=== PATIENT | male | born 1970 | race Caucasian/White ===

== ENCOUNTER 2017-07-20 20:36 | Inpatient (IN) | payer OTHER ==
[~2017-07-20] VITALS: Ht 167.6 cm; Wt 109.8 kg
[2017-07-20] MEDS ORDERED: MORPHINE SULFATE 4 MG/ML CPJ (NOT FOR IM USE) IV STA (20:45)
[2017-07-20] MEDS ORDERED: SODIUM CHLORIDE 0.9% 1,000 ML IV ONE (20:45)
[2017-07-20] MEDS ORDERED: FAMOTIDINE 20MG/2ML VIAL IV ONE (20:45)
[2017-07-20] MEDS ORDERED: ONDANSETRON HCL 4MG/2ML INJ IV STA (20:45)
[2017-07-20 21:50] LABS: BASOPHILS % 0.4 % (0.0-2.0); EOSINOPHILS % 0.6 % (0.0-5.0); HEMOGLOBIN. 14.9 g/dL (14.0-18.0); MEAN CORPUSCULAR HEMOGLOBIN 29.2 pg (28.0-32.0); MEAN CORPUSCULAR VOLUME 84.2 fL (80.0-94.0); MEAN PLATELET VOLUME 8.8 fl (7.4-10.4); MONOCYTES % 9.1 % (2.0-8.0); NEUTROPHILS % 75.9 % (40.0-76.0); PLATELET 272 x1000/uL (130-400); RED CELL DISTRIBUTION WIDTH 14.4 % (11.6-14.6)
[2017-07-20 21:54] LABS: INR 1.1
[2017-07-20 21:58] LABS: CHLORIDE 102 mEq/L (98-107)
[2017-07-20 22:02] LABS: ETHANOL BLOOD < 10 mg/dL
[2017-07-21 01:19] VITALS: BP 143/92
[2017-07-21] MEDS ORDERED: SERT50TA12 PO (03:33)
[2017-07-21] MEDS ORDERED: SUCR1TAB30 PO (03:33)
[2017-07-21] MEDS ORDERED: ONDA4TAB5 PO (03:33)
[2017-07-21] MEDS ORDERED: SITA100T11 PO ×2 (03:33)
[2017-07-21] MEDS ORDERED: OMEP20CA10 PO (03:33)
[2017-07-21] MEDS ORDERED: FAMO20TA8 PO (03:33)
[2017-07-21] MEDS ORDERED: LOSA50TA20 PO (03:33)
[2017-07-21] MEDS ORDERED: DEXTROSE 50% WATER 50ML SYRINGE IV PRN (03:45)
[2017-07-21 03:51] VITALS: BP 146/67
[2017-07-21 04:00] VITALS: BP 145/88
[2017-07-21] MEDS: DEXT 5%/0.45% NACL KCL 20MEQ/L 1,000 ML IV SCH ×2 (04:55→14:00)
[2017-07-21] MEDS: LEVOFLOXACIN 500MG PREMIX 100 ML IV SCH (04:56)
[2017-07-21] MEDS: MORPHINE SULFATE 4 MG/ML CPJ (NOT FOR IM USE) IV PRN ×3 (04:58→22:30)
[2017-07-21] MEDS: INSULIN LISPRO 100 UNITS/ML SUBCUT SCH ×4 (06:20→21:00)
[2017-07-21] MEDS: BLOOD SUGAR DIAGNOSTIC STRIP TEST SCH ×4 (06:20→21:00)
[2017-07-21 09:20] LABS: HEMATOCRIT 42.3 % (42.0-52.0); MEAN CORPUSCULAR HEMOGLOBIN 28.5 pg (28.0-32.0); MEAN CORPUSCULAR VOLUME 86.3 fL (80.0-94.0); PLATELET 228 x1000/uL (130-400); RED CELL DISTRIBUTION WIDTH 14.2 % (11.6-14.6)
[2017-07-21 09:39] LABS: INR 1.1; PARTIAL THROMBOPLASTIN TIME 29.3 sec (23.4-31.0); PROTHROMBIN TIME 11.7 sec (9.4-11.6)
[2017-07-21] MEDS: PANTOPRAZOLE SODIUM 40 MG/VIAL IV SCH (10:09)
[2017-07-21] MEDS: METRONIDAZOLE 500 MG PREMIX 100 ML IV SCH ×3 (10:46→22:00)
[2017-07-21 12:00] VITALS: BP 124/79
[2017-07-21] MEDS ORDERED: MORPHINE SULFATE 4 MG/ML CPJ (NOT FOR IM USE) IV NR (13:34)
[2017-07-21] MEDS ORDERED: DIPHENHYDRAMINE 50MG/ML VIAL ONE (14:48)
[2017-07-21] MEDS ORDERED: FENTANYL CITRATE/PF 50MCG/ML 2ML VIAL ONE (14:50)
[2017-07-21] MEDS ORDERED: MIDAZOLAM HCL 5 MG/5 ML VIAL ONE (14:50)
[2017-07-21 16:00] VITALS: BP 135/79
[2017-07-21 20:00] VITALS: BP 128/81
[2017-07-21] MEDS ORDERED: DIATR MEGLU/DIATRIZOATE SOLN 30ML PO SCH (20:30)
[2017-07-21 21:54] LABS: HEMATOCRIT. 39.1 % (42.0-52.0); HEMOGLOBIN. 13.5 g/dL (14.0-18.0); MEAN CORPUSCULAR HEMOGLOBIN 29.8 pg (28.0-32.0); MEAN CORPUSCULAR VOLUME 86.3 fL (80.0-94.0); PLATELET 203 x1000/uL (130-400); RED BLOOD CELL COUNT 4.53 mill/uL (4.7-6.1)
[2017-07-21 22:41] LABS: PLATELET ESTIMATE NORMAL
[2017-07-22] VITALS: BP 121/78
[2017-07-22] MEDS: MORPHINE SULFATE 4 MG/ML CPJ (NOT FOR IM USE) IV PRN ×2 (02:12→06:20)
[2017-07-22] MEDS ORDERED: IOHEXOL-350 100 ML BOTTLE ONE (02:55)
[2017-07-22 04:00] VITALS: BP 121/67
[2017-07-22] MEDS: LEVOFLOXACIN 500MG PREMIX 100 ML IV SCH (05:16)
[2017-07-22] MEDS: METRONIDAZOLE 500 MG PREMIX 100 ML IV SCH ×3 (05:16→22:01)
[2017-07-22] MEDS: BLOOD SUGAR DIAGNOSTIC STRIP TEST SCH ×4 (05:24→22:02)
[2017-07-22] MEDS: INSULIN LISPRO 100 UNITS/ML SUBCUT SCH ×4 (05:24→21:00)
[2017-07-22] MEDS: DEXT 5%/0.45% NACL KCL 20MEQ/L 1,000 ML IV SCH ×4 (06:00→22:00)
[2017-07-22 06:32] LABS: HEMOGLOBIN. 13.3 g/dL (14.0-18.0); MEAN CORPUSCULAR HEMOGLOBIN 29.5 pg (28.0-32.0); MEAN CORPUSCULAR VOLUME 86.6 fL (80.0-94.0); PLATELET 176 x1000/uL (130-400); RED BLOOD CELL COUNT 4.51 mill/uL (4.7-6.1); RED CELL DISTRIBUTION WIDTH 13.9 % (11.6-14.6)
[2017-07-22 06:58] LABS: CHLORIDE 104 mEq/L (98-107)
[2017-07-22 08:00] VITALS: BP 123/74
[2017-07-22] MEDS ORDERED: DIPHENHYDRAMINE 50MG/ML VIAL IV PRN (08:15)
[2017-07-22] MEDS: PANTOPRAZOLE SODIUM 40 MG/VIAL IV SCH (08:36)
[2017-07-22] MEDS: ALPRAZOLAM 0.25 MG TABLET PO SCH ×3 (08:37→16:19)
[2017-07-22] MEDS: HYDROMORPHONE HCL/PF 2MG/ML CPJ IV PRN ×3 (10:39→21:39)
[2017-07-22] MEDS: NYSTATIN POWDER 15GM TOP SCH ×3 (10:41→16:20)
[2017-07-22 12:18] VITALS: BP 119/72
[2017-07-22 13:54] LABS: PLATELET ESTIMATE NORMAL
[2017-07-22 16:00] VITALS: BP 117/74
[2017-07-22 20:00] VITALS: BP 117/86
[2017-07-23 00:16] VITALS: BP 117/83
[2017-07-23 04:00] VITALS: BP 130/80
[2017-07-23] MEDS: DEXT 5%/0.45% NACL KCL 20MEQ/L 1,000 ML IV SCH ×3 (04:24→13:03)
[2017-07-23] MEDS: LEVOFLOXACIN 500MG PREMIX 100 ML IV SCH (04:24)
[2017-07-23] MEDS: METRONIDAZOLE 500 MG PREMIX 100 ML IV SCH ×3 (06:20→21:19)
[2017-07-23] MEDS: BLOOD SUGAR DIAGNOSTIC STRIP TEST SCH ×4 (06:20→21:19)
[2017-07-23] MEDS: INSULIN LISPRO 100 UNITS/ML SUBCUT SCH ×4 (06:20→21:00)
[2017-07-23] MEDS: HYDROMORPHONE HCL/PF 2MG/ML CPJ IV PRN ×3 (06:42→22:29)
[2017-07-23 08:00] VITALS: BP_SYST 107; BP_SYST 113; BP_DIAS 70; BP_DIAS 74
[2017-07-23] MEDS: NYSTATIN POWDER 15GM TOP SCH ×3 (08:54→16:53)
[2017-07-23] MEDS: ALPRAZOLAM 0.25 MG TABLET PO SCH ×3 (08:54→16:53)
[2017-07-23] MEDS: PANTOPRAZOLE SODIUM 40 MG/VIAL IV SCH (08:54)
[2017-07-23 11:38] VITALS: BP 116/80
[2017-07-23 16:10] VITALS: BP 119/81
[2017-07-23 20:00] VITALS: BP 123/83
[2017-07-24] VITALS (7 sets, daily range): BP systolic 109–130; BP diastolic 68–87
[2017-07-24] MEDS: DEXT 5%/0.45% NACL KCL 20MEQ/L 1,000 ML IV SCH ×3 (00:43→22:26)
[2017-07-24] MEDS: LEVOFLOXACIN 500MG PREMIX 100 ML IV SCH (04:52)
[2017-07-24] MEDS: METRONIDAZOLE 500 MG PREMIX 100 ML IV SCH ×3 (05:52→22:24)
[2017-07-24] MEDS: HYDROMORPHONE HCL/PF 2MG/ML CPJ IV PRN ×2 (06:05→14:53)
[2017-07-24] MEDS: INSULIN LISPRO 100 UNITS/ML SUBCUT SCH ×4 (06:15→22:20)
[2017-07-24] MEDS: BLOOD SUGAR DIAGNOSTIC STRIP TEST SCH ×4 (06:15→22:20)
[2017-07-24] MEDS: NYSTATIN POWDER 15GM TOP SCH ×2 (09:24→17:47)
[2017-07-24] MEDS: ALPRAZOLAM 0.25 MG TABLET PO SCH (09:24)
[2017-07-24] MEDS: PANTOPRAZOLE SODIUM 40 MG/VIAL IV SCH ×2 (09:24→22:24)
[2017-07-24] MEDS: ALPRAZOLAM 0.5 MG TABLET PO SCH ×2 (12:12→17:46)
[2017-07-24] MEDS ORDERED: ALPRAZOLAM 0.25 MG TABLET PO SCH (13:00)
[2017-07-24] MEDS ORDERED: HYDROMORPHONE HCL/PF 2MG/ML CPJ IV PRN (15:15)
[2017-07-24] MEDS ORDERED: HYDROCODONE/ACETAMINOPHEN 10/325MG TABLET PO PRN (15:15)
[2017-07-24] MEDS: SUCRALFATE 1 G/10 ML UDC PO SCH ×2 (17:47→22:25)
[2017-07-24] MEDS: MICONAZOLE NITRATE 2% OINT 71GM TOP SCH (22:24)
[2017-07-25] VITALS (7 sets, daily range): BP systolic 107–117; BP diastolic 63–82
[2017-07-25] MEDS: LEVOFLOXACIN 500MG PREMIX 100 ML IV SCH (05:00)
[2017-07-25] MEDS: DEXT 5%/0.45% NACL KCL 20MEQ/L 1,000 ML IV SCH ×2 (06:20→14:49)
[2017-07-25] MEDS: METRONIDAZOLE 500 MG PREMIX 100 ML IV SCH ×2 (06:21→14:49)
[2017-07-25 06:40] LABS: HEMATOCRIT. 40.9 % (42.0-52.0); HEMOGLOBIN. 13.7 g/dL (14.0-18.0); MEAN CORPUSCULAR HEMOGLOBIN 28.7 pg (28.0-32.0); MEAN CORPUSCULAR VOLUME 85.8 fL (80.0-94.0); MEAN PLATELET VOLUME 8.8 fl (7.4-10.4); PLATELET 183 x1000/uL (130-400); RED BLOOD CELL COUNT 4.77 mill/uL (4.7-6.1); RED CELL DISTRIBUTION WIDTH 14.7 % (11.6-14.6)
[2017-07-25] MEDS: SUCRALFATE 1 G/10 ML UDC PO SCH ×3 (07:10→17:39)
[2017-07-25] MEDS: BLOOD SUGAR DIAGNOSTIC STRIP TEST SCH ×3 (07:10→17:33)
[2017-07-25] MEDS: INSULIN LISPRO 100 UNITS/ML SUBCUT SCH ×2 (07:40→12:40)
[2017-07-25] MEDS ORDERED: GADOBENATE DIMEGLUMINE 529 MG/ML 10ML IV ONE (09:08)
[2017-07-25] MEDS: PANTOPRAZOLE SODIUM 40 MG/VIAL IV SCH (10:24)
[2017-07-25] MEDS: ALPRAZOLAM 0.5 MG TABLET PO SCH ×3 (10:24→17:39)
[2017-07-25] MEDS: HYDROCODONE/ACETAMINOPHEN 5/325MG TABLET PO PRN ×2 (10:25→18:35)
[2017-07-25] MEDS: NYSTATIN POWDER 15GM TOP SCH (10:29)
[2017-07-25] MEDS: MICONAZOLE NITRATE 2% OINT 71GM TOP SCH (10:30)
[2017-07-25 14:22] LABS: PLATELET ESTIMATE NORMAL
[2017-08-01] MEDS ORDERED: METO10TA3 PO (13:12)
[2017-08-01] MEDS ORDERED: METR-218 PO (13:12)
[2017-08-01] MEDS ORDERED: HYDR-4001 PO (13:12)
[2017-08-01] MEDS ORDERED: BISA5TAB10 PO (13:12)
== END 2017-07-25 20:20 | disposition home or self-care (01) | DRG 392 ==
LOC: ER 22:27 → 8WST 22:41 → EDBEDREQ 22:43 → EDBEDREQSVC 22:43 → ENRESERV 23:36
PROVIDERS: ADMIT Internal Medicine; ATTEND Internal Medicine
PROC: 0DB68ZX Excision of Stomach, Via Natural or Artificial Opening Endoscopic, Diagnostic (ICD-10-PCS; principal; 2017-07-24)
DX: K29.60 Other gastritis without bleeding (principal); K57.32 Diverticulitis of large intestine without perforation or abscess without bleeding; E11.9 Type 2 diabetes mellitus without complications; M79.3 Panniculitis, unspecified; I10 Essential (primary) hypertension; E66.9 Obesity, unspecified; Z79.84 Long term (current) use of oral hypoglycemic drugs; Z79.899 Other long term (current) drug therapy; K21.9 Gastro-esophageal reflux disease without esophagitis; Z90.49 Acquired absence of other specified parts of digestive tract; Z71.3 Dietary counseling and surveillance; Z68.39 Body mass index [BMI] 39.0-39.9, adult
CPT/HCPCS: 36415; 71045; 74176; 74178; 74183; 80048; 82962; 83036; 83605; 83615; 83880; 84484; 85007; 85027; 85651; 88305; 88312; 88313; 93005; 96361; 96374; 96375; 99285; A6261; A9577; C1893; C9113; G0482; J1170; J1200; J1956; J2250; J2270; J2405; J3010; J3490; J7030; Q9963; Q9967

== ENCOUNTER 2018-04-09 10:09 | Emergency (ER) | payer OTHER ==
[~2018-04-09] VITALS: Ht 167.6 cm; Wt 110.0 kg
[~2018-04-09 10:09] MED LIST: BISA5TAB10 PO; FAMO20TA8 PO; HYDR-4001 PO; LOSA50TA20 PO; METO10TA3 PO; METR-218 PO; OMEP20CA10 PO; ONDA4TAB5 PO; SERT50TA12 PO; SITA100T11 PO; SUCR1TAB30 PO
[2018-04-09] MEDS ORDERED: SODIUM CHLORIDE 0.9% 1,000 ML IV ONE (11:05)
[2018-04-09] MEDS ORDERED: MORPHINE SULFATE 4 MG/ML CPJ (NOT FOR IM USE) IV STA (11:05)
[2018-04-09] MEDS ORDERED: ONDANSETRON HCL 4MG/2ML INJ IV STA (11:05)
[2018-04-09 11:45] LABS: BASOPHILS % 0.5 % (0.0-2.0); EOSINOPHILS % 0.3 % (0.0-5.0); HEMATOCRIT. 45.6 % (42.0-52.0); HEMOGLOBIN. 15.5 g/dL (14.0-18.0); MEAN CORPUSCULAR HEMOGLOBIN 29.6 pg (28.0-32.0); MEAN PLATELET VOLUME 8.5 fl (7.4-10.4); MONOCYTES % 7.1 % (2.0-8.0); NEUTROPHILS % 79.1 % (40.0-76.0); PLATELET 238 x1000/uL (130-400); RED BLOOD CELL COUNT 5.24 mill/uL (4.7-6.1); RED CELL DISTRIBUTION WIDTH 13.9 % (11.6-14.6)
[2018-04-09 11:50] LABS: CHLORIDE 106 mEq/L (98-107)
[2018-04-09 12:19] LABS: CLARITY URINE CLEAR (CLEAR); COLOR URINE YELLOW (YELLOW); KETONES URINE NEGATIVE (NEGATIVE); LEUKOCYTE ESTERASE URINE NEGATIVE (NEGATIVE); NITRITE URINE NEGATIVE (NEGATIVE); OCCULT BLOOD URINE NEGATIVE (NEGATIVE); PH URINE 7.5 (4.5-8.0); PROTEIN URINE NEGATIVE (NEGATIVE); UROBILINOGEN URINE 0.2 E.U./dL (0.2-1.0)
[2018-04-09] MEDS ORDERED: IOHEXOL-300 100 ML BOTTLE ONE (13:19)
[2018-04-09] MEDS ORDERED: LEVOFLOXACIN 750MG PREMIX 150 ML IV ONE (13:30)
[2018-04-09] MEDS ORDERED: METRONIDAZOLE 500 MG PREMIX 100 ML IV ONE (13:30)
[2018-04-09] MEDS ORDERED: HYDROCODONE/ACETAMINOPHEN 5/325MG TABLET PO ONE (14:30)
[2018-04-09 18:25] VITALS: BP 148/98
== END 2018-04-09 18:33 | disposition home or self-care (01) ==
LOC: ER 11:27
DX: K57.32 Diverticulitis of large intestine without perforation or abscess without bleeding (principal)
CPT/HCPCS: 36415; 74177; 80053; 81003; 83690; 85025; 96365; 96366; 96367; 96375; 99285; J1956; J2270; J2405; J3490; J7030; Q9967

== ENCOUNTER 2018-04-17 21:23 | Inpatient (IN) | payer OTHER ==
[~2018-04-17] VITALS: Ht 175.3 cm; Wt 108.0 kg
[2018-04-18] MEDS ORDERED: ONDANSETRON HCL 4MG/2ML INJ IV STA (06:23)
[2018-04-18] MEDS ORDERED: SODIUM CHLORIDE 0.9% 1,000 ML IV ONE (06:23)
[2018-04-18] MEDS ORDERED: FAMOTIDINE 20MG/2ML VIAL IV STA (06:23)
[2018-04-18] MEDS ORDERED: MORPHINE SULFATE 4 MG/ML CPJ (NOT FOR IM USE) IV STA (06:23)
[2018-04-18 06:59] LABS: CLARITY URINE CLEAR (CLEAR); COLOR URINE YELLOW (YELLOW); KETONES URINE TRACE (NEGATIVE); LEUKOCYTE ESTERASE URINE NEGATIVE (NEGATIVE); NITRITE URINE NEGATIVE (NEGATIVE); OCCULT BLOOD URINE NEGATIVE (NEGATIVE); PH URINE 5.5 (4.5-8.0); PROTEIN URINE NEGATIVE (NEGATIVE); SPECIFIC GRAVITY URINE 1.022 (1.005-1.030); UROBILINOGEN URINE 0.2 E.U./dL (0.2-1.0)
[2018-04-18 07:18] LABS: BASOPHILS % 0.4 % (0.0-2.0); EOSINOPHILS % 0.6 % (0.0-5.0); HEMOGLOBIN. 14.8 g/dL (14.0-18.0); LYMPHOCYTES % 13.6 % (20.0-50.0); MEAN CORPUSCULAR HEMOGLOBIN 30.3 pg (28.0-32.0); MEAN CORPUSCULAR VOLUME 87.9 fL (80.0-94.0); MEAN PLATELET VOLUME 8.4 fl (7.4-10.4); NEUTROPHILS % 76.4 % (40.0-76.0); PLATELET 184 x1000/uL (130-400); RED BLOOD CELL COUNT 4.89 mill/uL (4.7-6.1)
[2018-04-18 07:20] LABS: CHLORIDE 104 mEq/L (98-107)
[2018-04-18] MEDS ORDERED: MORPHINE SULFATE 4 MG/ML CPJ (NOT FOR IM USE) IV ONE (08:00)
[2018-04-18] MEDS ORDERED: ONDANSETRON HCL 4MG/2ML INJ IV ONE (08:00)
[2018-04-18] MEDS ORDERED: METRONIDAZOLE 500 MG PREMIX 100 ML IV ONE (08:45)
[2018-04-18] MEDS ORDERED: CEFTRIAXONE SODIUM 1 G/VIAL IM ONE (08:45)
[2018-04-18] MEDS ORDERED: IOHEXOL-300 100 ML BOTTLE ONE (08:52)
[2018-04-18] MEDS ORDERED: IPRATROPIUM/ALBUTEROL 0.5-3(2.5)MG/3ML NEB INH PRN (11:45)
[2018-04-18] MEDS ORDERED: ACETAMINOPHEN 325MG TABLET PO PRN (11:45)
[2018-04-18] MEDS ORDERED: SERTRALINE HCL 50MG TABLET PO SCH (12:15)
[2018-04-18] MEDS: MORPHINE SULFATE 4 MG/ML CPJ (NOT FOR IM USE) IV PRN ×3 (12:20→22:14)
[2018-04-18 12:30] LABS: PHOSPHORUS 3.4 mg/dL (2.5-4.9)
[2018-04-18] MEDS: ONDANSETRON HCL 4MG/2ML INJ IV PRN (16:23)
[2018-04-18] MEDS: CLONIDINE 0.1MG TABLET PO PRN (18:24)
[2018-04-18] MEDS: LORAZEPAM 0.5MG TABLET PO PRN (19:02)
[2018-04-18] MEDS: HYDROCODONE/APAP 7.5/325MG 1 TAB TABLET PO PRN (20:16)
[2018-04-19] VITALS (7 sets, daily range): BP systolic 101–142; BP diastolic 67–94
[2018-04-19] MEDS: ONDANSETRON HCL 4MG/2ML INJ IV PRN ×3 (00:38→16:32)
[2018-04-19] MEDS: HYDROCODONE/APAP 7.5/325MG 1 TAB TABLET PO PRN ×3 (00:39→20:05)
[2018-04-19] MEDS: LEVOFLOXACIN 500MG PREMIX 100 ML IV SCH (00:40)
[2018-04-19] MEDS: LOSARTAN POTASSIUM 50 MG TABLET PO SCH ×2 (00:40→08:22)
[2018-04-19] MEDS: METRONIDAZOLE 500 MG PREMIX 100 ML IV SCH ×3 (00:40→13:58)
[2018-04-19] MEDS: SERTRALINE HCL 50MG TABLET PO SCH ×2 (00:40→08:22)
[2018-04-19] MEDS: SODIUM CHLORIDE 0.9% 1,000 ML IV SCH ×2 (00:41→12:47)
[2018-04-19] MEDS: MORPHINE SULFATE 4 MG/ML CPJ (NOT FOR IM USE) IV PRN ×3 (07:25→16:36)
[2018-04-19 08:03] LABS: CHLORIDE 105 mEq/L (98-107)
[2018-04-19 08:16] LABS: BASOPHILS % 0.4 % (0.0-2.0); EOSINOPHILS % 0.6 % (0.0-5.0); HEMOGLOBIN. 14.3 g/dL (14.0-18.0); LYMPHOCYTES % 12.1 % (20.0-50.0); MEAN CORPUSCULAR HEMOGLOBIN 30.6 pg (28.0-32.0); MEAN CORPUSCULAR VOLUME 87.7 fL (80.0-94.0); MEAN PLATELET VOLUME 8.6 fl (7.4-10.4); MONOCYTES % 10.7 % (2.0-8.0); NEUTROPHILS % 76.2 % (40.0-76.0); PLATELET 182 x1000/uL (130-400); RED BLOOD CELL COUNT 4.68 mill/uL (4.7-6.1); RED CELL DISTRIBUTION WIDTH 13.8 % (11.6-14.6)
[2018-04-19] MEDS: PANTOPRAZOLE SODIUM 40 MG/VIAL IV SCH (08:22)
[2018-04-19 15:36] LABS: *AMPHETAMINES SCREEN URINE NEGATIVE (NEGATIVE); *BARBITURATES SCREEN URINE NEGATIVE (NEGATIVE); *BENZODIAZEPINES SCREEN URINE NEGATIVE (NEGATIVE); *COCAINE SCREEN URINE NEGATIVE (NEGATIVE); CANNABINOID URINE SCREEN NEGATIVE (NEGATIVE); METHADONE URINE SCREEN NEGATIVE (NEGATIVE); OPIATES URINE SCREEN PRESUMTIVE POSITIVE (NEGATIVE); PHENCYCLIDINE URINE SCREEN NEGATIVE (NEGATIVE)
[2018-04-19] MEDS: INSULIN LISPRO 100 UNITS/ML SUBCUT SCH (20:25)
[2018-04-19] MEDS: BLOOD SUGAR DIAGNOSTIC STRIP TEST SCH (20:25)
[2018-04-19] MEDS ORDERED: DEXTROSE 50% WATER 50ML SYRINGE IV PRN (20:30)
[2018-04-19] MEDS: LORAZEPAM 0.5MG TABLET PO PRN (22:45)
[2018-04-20] VITALS: BP 110/72
[2018-04-20] MEDS: LEVOFLOXACIN 500MG PREMIX 100 ML IV SCH
[2018-04-20] MEDS: METRONIDAZOLE 500 MG PREMIX 100 ML IV SCH ×4 (03:41→21:47)
[2018-04-20 04:00] VITALS: BP 124/74
[2018-04-20] MEDS: SODIUM CHLORIDE 0.9% 1,000 ML IV SCH ×2 (04:10→12:37)
[2018-04-20] MEDS: HYDROCODONE/APAP 7.5/325MG 1 TAB TABLET PO PRN ×3 (05:34→18:06)
[2018-04-20] MEDS: BLOOD SUGAR DIAGNOSTIC STRIP TEST SCH ×4 (05:52→20:46)
[2018-04-20] MEDS: INSULIN LISPRO 100 UNITS/ML SUBCUT SCH ×4 (06:17→20:47)
[2018-04-20 08:08] VITALS: BP 121/61
[2018-04-20] MEDS: SERTRALINE HCL 50MG TABLET PO SCH (08:58)
[2018-04-20] MEDS: PANTOPRAZOLE SODIUM 40 MG/VIAL IV SCH (08:58)
[2018-04-20] MEDS: LOSARTAN POTASSIUM 50 MG TABLET PO SCH (08:58)
[2018-04-20] MEDS: ONDANSETRON HCL 4MG/2ML INJ IV PRN ×2 (08:59→21:46)
[2018-04-20] MEDS: MORPHINE SULFATE 4 MG/ML CPJ (NOT FOR IM USE) IV PRN ×3 (09:06→21:47)
[2018-04-20 09:49] LABS: BASOPHILS % 0.5 % (0.0-2.0); EOSINOPHILS % 0.9 % (0.0-5.0); HEMOGLOBIN. 13.4 g/dL (14.0-18.0); LYMPHOCYTES % 20.5 % (20.0-50.0); MEAN CORPUSCULAR HEMOGLOBIN 30.3 pg (28.0-32.0); MEAN CORPUSCULAR VOLUME 88.1 fL (80.0-94.0); MEAN PLATELET VOLUME 8.9 fl (7.4-10.4); MONOCYTES % 12.3 % (2.0-8.0); NEUTROPHILS % 65.8 % (40.0-76.0); PLATELET 184 x1000/uL (130-400); RED BLOOD CELL COUNT 4.43 mill/uL (4.7-6.1); RED CELL DISTRIBUTION WIDTH 13.8 % (11.6-14.6)
[2018-04-20 10:43] LABS: CHLORIDE 105 mEq/L (98-107)
[2018-04-20 12:00] VITALS: BP 124/73
[2018-04-20 16:00] VITALS: BP 125/74
[2018-04-20 20:00] VITALS: BP 139/83
[2018-04-20] MEDS: LORAZEPAM 0.5MG TABLET PO PRN (23:23)
[2018-04-21] VITALS: BP 127/80
[2018-04-21] MEDS: SODIUM CHLORIDE 0.9% 1,000 ML IV SCH ×3 (01:03→21:18)
[2018-04-21] MEDS: MORPHINE SULFATE 4 MG/ML CPJ (NOT FOR IM USE) IV PRN ×2 (02:17→06:18)
[2018-04-21] MEDS: LEVOFLOXACIN 500MG PREMIX 100 ML IV SCH (02:17)
[2018-04-21 04:00] VITALS: BP 141/85
[2018-04-21] MEDS: HYDROCODONE/APAP 7.5/325MG 1 TAB TABLET PO PRN ×2 (04:15→08:39)
[2018-04-21 05:31] LABS: BASOPHILS % 0.5 % (0.0-2.0); EOSINOPHILS % 0.9 % (0.0-5.0); HEMOGLOBIN. 13.9 g/dL (14.0-18.0); LYMPHOCYTES % 23.1 % (20.0-50.0); MEAN CORPUSCULAR HEMOGLOBIN 29.7 pg (28.0-32.0); MEAN CORPUSCULAR VOLUME 87.5 fL (80.0-94.0); MEAN PLATELET VOLUME 8.7 fl (7.4-10.4); MONOCYTES % 11.5 % (2.0-8.0); PLATELET 201 x1000/uL (130-400); RED BLOOD CELL COUNT 4.69 mill/uL (4.7-6.1); RED CELL DISTRIBUTION WIDTH 13.7 % (11.6-14.6)
[2018-04-21 05:33] LABS: CHLORIDE 105 mEq/L (98-107)
[2018-04-21] MEDS: METRONIDAZOLE 500 MG PREMIX 100 ML IV SCH ×3 (05:41→21:18)
[2018-04-21] MEDS: BLOOD SUGAR DIAGNOSTIC STRIP TEST SCH ×4 (05:46→20:54)
[2018-04-21] MEDS: INSULIN LISPRO 100 UNITS/ML SUBCUT SCH ×4 (06:05→20:54)
[2018-04-21] MEDS: ONDANSETRON HCL 4MG/2ML INJ IV PRN (06:23)
[2018-04-21 08:00] VITALS: BP 148/94
[2018-04-21] MEDS: LOSARTAN POTASSIUM 50 MG TABLET PO SCH (08:38)
[2018-04-21] MEDS: SERTRALINE HCL 50MG TABLET PO SCH (08:38)
[2018-04-21] MEDS: LORAZEPAM 0.5MG TABLET PO PRN (08:38)
[2018-04-21] MEDS: PANTOPRAZOLE SODIUM 40 MG/VIAL IV SCH ×2 (08:40→21:18)
[2018-04-21] MEDS: HYDROMORPHONE HCL/PF 2MG/ML CPJ IV PRN ×3 (10:09→23:37)
[2018-04-21 12:00] VITALS: BP 128/81
[2018-04-21] MEDS: SIMETHICONE 80MG TABLET CHEW PO SCH ×3 (12:29→21:18)
[2018-04-21 16:00] VITALS: BP 136/89
[2018-04-21 20:00] VITALS: BP 146/87
[2018-04-22] VITALS: BP 152/95
[2018-04-22] MEDS: LEVOFLOXACIN 500MG PREMIX 100 ML IV SCH (01:29)
[2018-04-22 04:00] VITALS: BP 150/97
[2018-04-22] MEDS: HYDROMORPHONE HCL/PF 2MG/ML CPJ IV PRN (04:01)
[2018-04-22] MEDS: SODIUM CHLORIDE 0.9% 1,000 ML IV SCH ×3 (05:24→21:50)
[2018-04-22] MEDS: METRONIDAZOLE 500 MG PREMIX 100 ML IV SCH ×3 (05:24→21:54)
[2018-04-22 06:31] LABS: BASOPHILS % 0.5 % (0.0-2.0); EOSINOPHILS % 0.7 % (0.0-5.0); HEMOGLOBIN. 14.1 g/dL (14.0-18.0); LYMPHOCYTES % 18.5 % (20.0-50.0); MEAN CORPUSCULAR HEMOGLOBIN 30.7 pg (28.0-32.0); MEAN CORPUSCULAR VOLUME 86.9 fL (80.0-94.0); MEAN PLATELET VOLUME 8.8 fl (7.4-10.4); MONOCYTES % 10.5 % (2.0-8.0); NEUTROPHILS % 69.8 % (40.0-76.0); PLATELET 203 x1000/uL (130-400); RED BLOOD CELL COUNT 4.61 mill/uL (4.7-6.1); RED CELL DISTRIBUTION WIDTH 13.9 % (11.6-14.6)
[2018-04-22 06:43] LABS: CHLORIDE 103 mEq/L (98-107)
[2018-04-22] MEDS: BLOOD SUGAR DIAGNOSTIC STRIP TEST SCH ×4 (06:51→21:49)
[2018-04-22] MEDS: INSULIN LISPRO 100 UNITS/ML SUBCUT SCH ×4 (06:52→21:00)
[2018-04-22 08:00] VITALS: BP 146/83
[2018-04-22] MEDS: LOSARTAN POTASSIUM 50 MG TABLET PO SCH (08:54)
[2018-04-22] MEDS: LORAZEPAM 0.5MG TABLET PO PRN ×2 (08:54→20:33)
[2018-04-22] MEDS: SIMETHICONE 80MG TABLET CHEW PO SCH ×4 (08:54→20:33)
[2018-04-22] MEDS: PANTOPRAZOLE SODIUM 40 MG/VIAL IV SCH ×2 (08:54→20:33)
[2018-04-22] MEDS: SERTRALINE HCL 50MG TABLET PO SCH (08:55)
[2018-04-22] MEDS ORDERED: POTASSIUM CHLORIDE 20MEQ TABLET SR PO SCH (11:00)
[2018-04-22 12:00] VITALS: BP 153/94
[2018-04-22] MEDS: KETOROLAC 30MG/ML VIAL IV PRN (13:41)
[2018-04-22 16:00] VITALS: BP 154/94
[2018-04-22] MEDS: MORPHINE SULFATE 4 MG/ML CPJ (NOT FOR IM USE) IV PRN ×2 (16:18→20:33)
[2018-04-22] MEDS ORDERED: LACTULOSE 20G/30ML UDC PO PRN (17:00)
[2018-04-22] MEDS ORDERED: LACTULOSE 20G/30ML UDC PO NR (17:00)
[2018-04-22] MEDS: DOCUSATE SODIUM 250MG CAPSULE PO SCH (18:17)
[2018-04-22 20:00] VITALS: BP 146/84
[2018-04-23] VITALS (8 sets, daily range): BP systolic 120–172; BP diastolic 72–121
[2018-04-23] MEDS: MORPHINE SULFATE 4 MG/ML CPJ (NOT FOR IM USE) IV PRN ×5 (00:48→20:02)
[2018-04-23] MEDS: LEVOFLOXACIN 500MG PREMIX 100 ML IV SCH (02:14)
[2018-04-23] MEDS: METRONIDAZOLE 500MG TABLET PO SCH ×3 (06:31→21:30)
[2018-04-23] MEDS: BLOOD SUGAR DIAGNOSTIC STRIP TEST SCH ×4 (06:32→21:59)
[2018-04-23] MEDS: INSULIN LISPRO 100 UNITS/ML SUBCUT SCH ×4 (06:33→21:00)
[2018-04-23 07:39] LABS: CHLORIDE 105 mEq/L (98-107)
[2018-04-23] MEDS: SERTRALINE HCL 50MG TABLET PO SCH (09:24)
[2018-04-23] MEDS: PANTOPRAZOLE SODIUM 40 MG/VIAL IV SCH ×2 (09:24→21:31)
[2018-04-23] MEDS: LOSARTAN POTASSIUM 50 MG TABLET PO SCH (09:24)
[2018-04-23] MEDS: SIMETHICONE 80MG TABLET CHEW PO SCH ×4 (09:24→21:30)
[2018-04-23] MEDS: DOCUSATE SODIUM 250MG CAPSULE PO SCH (09:24)
[2018-04-23] MEDS: SODIUM CHLORIDE 0.9% 1,000 ML IV SCH (12:06)
[2018-04-23] MEDS ORDERED: SIME80TA15 MT (17:01)
[2018-04-23] MEDS ORDERED: LACT1CAP56 MT (17:01)
[2018-04-23] MEDS ORDERED: LEVO750T21 MT (17:01)
[2018-04-23] MEDS ORDERED: METR500T MT (17:01)
[2018-04-23] MEDS: KETOROLAC 30MG/ML VIAL IV PRN (19:02)
[2018-04-23] MEDS ORDERED: LEVOFLOXACIN 500MG TABLET PO SCH (21:00)
[2018-04-23] MEDS ORDERED: LEVOFLOXACIN 250MG TABLET PO SCH (21:00)
[2018-04-23] MEDS: CLONIDINE 0.1MG TABLET PO PRN (23:13)
== END 2018-04-24 00:30 | disposition home or self-care (01) | DRG 392 ==
LOC: ER 21:23 → EDBEDREQ 04-18 09:15 → ENRESERV 04-18 20:35 → 6EST 04-18 21:00 → 5WST 04-18 23:20
PROVIDERS: ADMIT Internal Medicine; ATTEND Internal Medicine
DX: K57.32 Diverticulitis of large intestine without perforation or abscess without bleeding (principal); E11.9 Type 2 diabetes mellitus without complications; I10 Essential (primary) hypertension; Z79.1 Long term (current) use of non-steroidal anti-inflammatories (NSAID); Z90.49 Acquired absence of other specified parts of digestive tract; Z79.899 Other long term (current) drug therapy
CPT/HCPCS: 36415; 74018; 74177; 80048; 80061; 80305; 82962; 83036; 83735; 84100; 84443; 96365; 96372; 96375; 96376; 99285; C9113; J0696; J1170; J1885; J1956; J2270; J2405; J3490; J7030; Q9967; A4315

== ENCOUNTER 2018-08-25 11:04 | Emergency (ER) | payer OTHER ==
[~2018-08-25] VITALS: Ht 177.8 cm; Wt 108.0 kg
[~2018-08-25 11:04] MED LIST changes: -FAMO20TA8 PO; +LACT1CAP56 MT; +LEVO750T21 MT; -METR-218 PO; +METR500T MT; +SIME80TA15 MT
[2018-08-25] MEDS ORDERED: FAMOTIDINE 20MG/2ML VIAL IV STA (11:45)
[2018-08-25] MEDS ORDERED: DICYCLOMINE HCL 10MG/ML 2ML AMP IM ONE (11:45)
[2018-08-25 12:06] LABS: HEMATOCRIT. 38.9 % (42.0-52.0); HEMOGLOBIN. 13.5 g/dL (14.0-18.0); MEAN CORPUSCULAR HEMOGLOBIN 30.2 pg (28.0-32.0); MEAN CORPUSCULAR VOLUME 86.8 fL (80.0-94.0); MEAN PLATELET VOLUME 8.2 fl (7.4-10.4); PLATELET 147 x1000/uL (130-400); RED BLOOD CELL COUNT 4.49 mill/uL (4.7-6.1); RED CELL DISTRIBUTION WIDTH 13.4 % (11.6-14.6)
[2018-08-25 12:10] LABS: CHLORIDE 97 mEq/L (98-107)
[2018-08-25 12:21] LABS: CLARITY URINE CLEAR (CLEAR); COLOR URINE YELLOW (YELLOW); KETONES URINE NEGATIVE (NEGATIVE); LEUKOCYTE ESTERASE URINE NEGATIVE (NEGATIVE); NITRITE URINE NEGATIVE (NEGATIVE); OCCULT BLOOD URINE NEGATIVE (NEGATIVE); PROTEIN URINE TRACE (NEGATIVE); SPECIFIC GRAVITY URINE 1.015 (1.005-1.030)
[2018-08-25 12:56] LABS: PLATELET ESTIMATE NORMAL
[2018-08-25 14:01] VITALS: BP 129/68
== END 2018-08-25 14:05 | disposition home or self-care (01) ==
LOC: ER 11:25
DX: K21.9 Gastro-esophageal reflux disease without esophagitis (principal); E11.9 Type 2 diabetes mellitus without complications; I10 Essential (primary) hypertension; Z90.49 Acquired absence of other specified parts of digestive tract; Z79.899 Other long term (current) drug therapy
CPT/HCPCS: 36415; 74018; 80053; 81003; 83690; 85025; 96372; 96374; 99284; J0500; J3490